=== PATIENT | male | born 1945 | race Caucasian/White ===

== ENCOUNTER → 2019-01-13 | Outpatient (CLI) | payer OTHER ==
[~2019-01-13] MED LIST: FLEC50TA25 PO; HYDR-3245 PO; METO25TA35 PO; RIVA20TA PO
== END | disposition home or self-care (01) ==
LOC: STAR 13:31
PROVIDERS: ATTEND Neurological Surgery
DX: Z01.811 Encounter for preprocedural respiratory examination (principal); Z01.812 Encounter for preprocedural laboratory examination; M48.061 Spinal stenosis, lumbar region without neurogenic claudication; I45.10 Unspecified right bundle-branch block; R79.1 Abnormal coagulation profile
CPT/HCPCS: 93005

== ENCOUNTER 2019-01-20 05:47 | Inpatient (IN) | payer OTHER ==
[2019-01-17 14:01] LABS: INTERNATIONAL NORMALIZED RATIO 1.06 (0.93-1.1); PROTHROMBIN TIME 11.1 Seconds (9.6-11.5)
[~2019-01-20] VITALS: Ht 188 cm; Wt 125.7 kg
[2019-01-20] MEDS ORDERED: LACTATED RINGERS 1,000 ML IV SCH (06:17)
[2019-01-20 06:20] VITALS: BP 110/80
[2019-01-20] MEDS ORDERED: OxyconTIN ER 20 MG TAB.ER PO ONE (06:30)
[2019-01-20] MEDS ORDERED: GABAPENTIN 300 MG CAPSULE PO ONE (06:30)
[2019-01-20] MEDS ORDERED: ACETAMINOPHEN 500 MG TABLET PO ONE (06:30)
[2019-01-20] MEDS ORDERED: FAMOTIDINE 20 MG TABLET PO ONE (06:30)
[2019-01-20] MEDS ORDERED: PROPOFOL 100 ML ONE (06:32)
[2019-01-20] MEDS ORDERED: MIDAZOLAM 1 MG/ML, 2ML ONE (06:32)
[2019-01-20] MEDS ORDERED: FENTANYL PF 250 MCG/5ML ONE (06:32)
[2019-01-20] MEDS ORDERED: BUPIVACAINE/EPI 0.5% 1:200K ONE (06:37)
[2019-01-20] MEDS ORDERED: BUPIVACAINE 0.25% ONE (06:37)
[2019-01-20] MEDS ORDERED: BACITRACIN 50,000 UNIT ONE (06:38)
[2019-01-20] MEDS ORDERED: THROMBIN 20,000 UNIT VIAL TP ONE (06:38)
[2019-01-20] MEDS ORDERED: DEXAMETHASONE 4 MG/ML, 1ML ONE (07:07)
[2019-01-20] MEDS ORDERED: CEFAZOLIN 1,000 MG ONE (07:07)
[2019-01-20] MEDS ORDERED: SUCCINYLCHOLINE 20 MG/ML, 10ML ONE (07:07)
[2019-01-20] MEDS ORDERED: ROCURONIUM 10 MG/ML,10ML ONE (07:07)
[2019-01-20] MEDS ORDERED: BUPIVACAINE LIPOSOME/PF 10ML INFIL ONE (07:58)
[2019-01-20] MEDS ORDERED: BUPIVACAINE/EPI 0.5% 1:200K INFIL ONE (08:00)
[2019-01-20] MEDS ORDERED: ONDANSETRON 2MG/ML, 2ML IV PRN (08:30)
[2019-01-20] MEDS ORDERED: hydrALAzine 20 MG/ML, 1ML IV PRN (08:30)
[2019-01-20] MEDS ORDERED: PROMETHAZINE 25 MG/ML, 1ML IV PRN (08:30)
[2019-01-20] MEDS ORDERED: LABETALOL 5MG/ML, 20ML IV PRN (08:30)
[2019-01-20] MEDS ORDERED: OXYcodone 5 MG/5 ML ORAL.SOL UDC PO PRN (08:30)
[2019-01-20] MEDS ORDERED: HYDROmorphone 2 MG/ML, 1ML IVPush PRN (08:30)
[2019-01-20] MEDS ORDERED: FENTANYL PF 100 MCG/2ML IV PRN (08:30)
[2019-01-20] MEDS ORDERED: MEPERIDINE/PF 25MG/0.5ML IVPush PRN (08:30)
[2019-01-20] MEDS ORDERED: METOPROLOL 1 MG/ML, 5ML IV PRN (08:30)
[2019-01-20] MEDS ORDERED: MICROFIBRILLAR COLLAGEN 1 GM TP ONE (08:53)
[2019-01-20] MEDS ORDERED: PROMETHAZINE 25 MG/ML, 1ML IM PRN (11:30)
[2019-01-20] MEDS ORDERED: CYCLOBENZAPRINE 10 MG TABLET PO PRN (11:30)
[2019-01-20] MEDS ORDERED: HYDROcodone/APAP 5/325 TABLET PO PRN (11:30)
[2019-01-20] MEDS ORDERED: MAGNESIUM HYDROXIDE 8%, 30ML UDC PO PRN (11:30)
[2019-01-20] MEDS ORDERED: SENNA/DOCUSATE TABLET PO PRN (11:30)
[2019-01-20] MEDS ORDERED: LABETALOL 5MG/ML, 20ML IVPush PRN (11:30)
[2019-01-20] MEDS ORDERED: PHARMACY MAY ADJ FOR RENAL FX MC PRN (11:30)
[2019-01-20] MEDS ORDERED: METHOCARBAMOL 750 MG TABLET PO PRN (11:30)
[2019-01-20] MEDS ORDERED: BISACODYL 10 MG SUPP PR PRN (11:30)
[2019-01-20] MEDS ORDERED: DIPHENHYDRAMINE 50 MG/ML, 1ML IVPush PRN (11:30)
[2019-01-20] MEDS ORDERED: HYDROcodone/APAP 10/325 MG TABLET PO PRN (11:30)
[2019-01-20] MEDS ORDERED: HYDROmorphone 1 MG/ML, 1ML VIAL ONE (12:19)
[2019-01-20] MEDS ORDERED: FENTANYL PF 100 MCG/2ML ONE (12:20)
[2019-01-20] MEDS ORDERED: PROMETHAZINE 25 MG/ML, 1ML ONE (12:31)
[2019-01-20 14:00] VITALS: BP 114/76
[2019-01-20] MEDS: morphine SULFATE 10 MG/ML, 1ML IVPush PRN ×3 (15:42→18:12)
[2019-01-20] MEDS: CEFAZOLIN PMX 1GM/50ML 50 ML IVPB SCH ×2 (15:45→22:33)
[2019-01-20] MEDS: D5%-0.9% NACL+KCL 20MEQ 1,000 ML IV SCH ×2 (15:45→21:33)
[2019-01-20] MEDS ORDERED: SODIUM CHLORIDE 0.9% 1,000 ML IV SCH (17:30)
[2019-01-20 17:53] LABS: BASOPHILS % (AUTO) 0 % (0-1); EOSINOPHILS % (AUTO) 0 % (1-7); LYMPHOCYTES # (AUTO) 0.66 x10^3/uL (1-3.4); LYMPHOCYTES % (AUTO) 6 % (22-44); MD NO; MEAN CORPUSCULAR HEMOGLOBIN 31.1 pg (27.5-34.5); MEAN CORPUSCULAR HGB CONC 34.5 g/dL (33.2-36.2); MEAN CORPUSCULAR VOLUME 90.2 fL (81-97); MEAN PLATELET VOLUME 8.4 fL (7.4-10.4); MONOCYTES # (AUTO) 0.71 x10^3/uL (0.2-0.8); MONOCYTES % (AUTO) 6 % (2-9); NEUTROPHILS # (AUTO) 10.57 x10^3/uL (1.8-6.8); NEUTROPHILS % (AUTO) 89 % (42-75); PLATELET COUNT 138 x10^3/uL (130-400); RED BLOOD COUNT 4.75 x10^6/uL (4.38-5.82); RED CELL DISTRIBUTION WIDTH 13.6 % (9.4-14.8)
[2019-01-20] MEDS ORDERED: DIGOXIN 0.25 MG/ML, 2ML IVPush ONE (18:00)
[2019-01-20] MEDS ORDERED: METOPROLOL TARTRATE 25 MG TABLET PO SCH ×2 (18:00→21:00)
[2019-01-20] MEDS ORDERED: METOPROLOL 1 MG/ML, 5ML ONE (18:19)
[2019-01-20] MEDS ORDERED: FILTER 0.22 MICRON IV ONE (18:30)
[2019-01-20] MEDS ORDERED: AMIODARONE 300 MG in DEXTROSE 5% 100 ML IV ONE (18:30)
[2019-01-20] MEDS ORDERED: METOPROLOL 1 MG/ML, 5ML IVPush ONE (18:30)
[2019-01-20 18:39] VITALS: BP 102/72
[2019-01-20 18:48] VITALS: BP 104/71
[2019-01-20 18:51] LABS: ALANINE AMINOTRANSFERASE 45 U/L (12-78); ALBUMIN 3.3 g/dL (3.4-5.0); ANION GAP 10 mmol/L (5-15); CALCIUM 8.6 mg/dL (8.5-10.1); CHLORIDE 108 mmol/L (98-107); CREATININE 1.18 mg/dL (0.7-1.3)
[2019-01-20 18:56] VITALS: BP 92/64
[2019-01-20 18:56] LABS: ALKALINE PHOSPHATASE 72 U/L (45-117); TOTAL PROTEIN 6.2 g/dL (6.4-8.2); TROPONIN I < 0.015 ng/mL (0.000-0.045)
[2019-01-20 20:55] VITALS: BP 97/69
[2019-01-20] MEDS: SODIUM CHLORIDE FLUSH 10ML SYR IVF SCH (21:00)
[2019-01-21] MEDS ORDERED: FLECAINIDE 100MG TABLET PO SCH
[2019-01-21 00:10] LABS: TROPONIN I < 0.015 ng/mL (0.000-0.045)
[2019-01-21] MEDS ORDERED: DIGOXIN 0.25 MG/ML, 2ML IVPush ONE ×2 (03:30→09:30)
[2019-01-21 03:36] VITALS: BP 96/64
[2019-01-21] MEDS: METOPROLOL TARTRATE 25 MG TABLET PO SCH ×2 (04:34→18:11)
[2019-01-21] MEDS: ENOXAPARIN 40 MG/0.4 ML SQ SCH (04:45)
[2019-01-21] MEDS: D5%-0.9% NACL+KCL 20MEQ 1,000 ML IV SCH (04:52)
[2019-01-21 05:41] LABS: TROPONIN I 0.026 ng/mL (0.000-0.045)
[2019-01-21 07:08] VITALS: BP 95/66
[2019-01-21] MEDS ORDERED: AMIODARONE 50 MG/ML, 3ML IVPush ONE ×2 (09:30→13:00)
[2019-01-21] MEDS: SODIUM CHLORIDE FLUSH 10ML SYR IVF SCH ×2 (09:50→20:16)
[2019-01-21] MEDS ORDERED: FILTER 0.22 MICRON IV ONE (10:00)
[2019-01-21] MEDS ORDERED: AMIODARONE 300 MG in DEXTROSE 5% 100 ML IV ONE (10:00)
[2019-01-21] MEDS: FAMOTIDINE 20 MG/2 ML IVPush SCH ×2 (10:23→20:16)
[2019-01-21] MEDS: FILTER 0.22 MICRON FOR AMIODARONE IV PRN (10:51)
[2019-01-21] MEDS: AMIODARONE 900 MG in DEXTROSE 5% 482 ML IV PRN (10:52)
[2019-01-21] MEDS: SODIUM CHLORIDE 0.9% 1,000 ML IV SCH ×2 (12:00→21:59)
[2019-01-21] MEDS ORDERED: AMIODARONE 150 MG in DEXTROSE 5% 100 ML IV ONE (13:00)
[2019-01-21 13:11] LABS: ANION GAP 8 mmol/L (5-15); CALCIUM 7.7 mg/dL (8.5-10.1); CHLORIDE 111 mmol/L (98-107); CREATININE 1.06 mg/dL (0.7-1.3)
[2019-01-21 15:22] VITALS: BP 89/90
[2019-01-21] MEDS ORDERED: OMNIPAQUE 350 MG/ML, 100ML BOTTLE ONE (16:05)
[2019-01-21] MEDS: OXYcodone/APAP 5/325MG TABLET PO PRN (16:12)
[2019-01-21 19:55] VITALS: BP 93/61
[2019-01-22 00:17] VITALS: BP 92/60
[2019-01-22] MEDS: OXYcodone/APAP 5/325MG TABLET PO PRN ×5 (03:28→22:08)
[2019-01-22 04:20] VITALS: BP 102/67
[2019-01-22 04:34] LABS: CHLORIDE 109 mmol/L (98-107)
[2019-01-22 04:51] LABS: ALANINE AMINOTRANSFERASE 22 U/L (12-78); ALBUMIN 2.6 g/dL (3.4-5.0); ALKALINE PHOSPHATASE 51 U/L (45-117); ANION GAP 6 mmol/L (5-15); BILIRUBIN,TOTAL 4.1 mg/dL (0.2-1.0); CALCIUM 7.6 mg/dL (8.5-10.1); CREATININE 1.02 mg/dL (0.7-1.3); TOTAL PROTEIN 5.3 g/dL (6.4-8.2)
[2019-01-22 05:28] LABS: MEAN CORPUSCULAR HEMOGLOBIN 30.6 pg (27.5-34.5); MEAN CORPUSCULAR HGB CONC 34.1 g/dL (33.2-36.2); MEAN CORPUSCULAR VOLUME 89.8 fL (81-97); MEAN PLATELET VOLUME 8.3 fL (7.4-10.4); PLATELET COUNT 104 x10^3/uL (130-400); RED BLOOD COUNT 3.62 x10^6/uL (4.38-5.82); RED CELL DISTRIBUTION WIDTH 13.2 % (9.4-14.8)
[2019-01-22 06:12] LABS: BASOPHILS # (AUTO) 0.03 x10^3/uL (0-0.1); BASOPHILS % (AUTO) 0 % (0-1); EOSINOPHILS # (AUTO) 0.01 x10^3/uL (0-0.4); EOSINOPHILS % (AUTO) 0 % (1-7); LYMPHOCYTES # (AUTO) 0.71 x10^3/uL (1-3.4); LYMPHOCYTES % (AUTO) 10 % (22-44); MD SCAN; MONOCYTES % (AUTO) 9 % (2-9); NEUTROPHILS # (AUTO) 5.62 x10^3/uL (1.8-6.8); NEUTROPHILS % (AUTO) 81 % (42-75)
[2019-01-22] MEDS: SODIUM CHLORIDE 0.9% 1,000 ML IV SCH ×2 (06:37→16:54)
[2019-01-22] MEDS: ENOXAPARIN 40 MG/0.4 ML SQ SCH (06:37)
[2019-01-22] MEDS: METOPROLOL TARTRATE 25 MG TABLET PO SCH ×2 (06:37→18:24)
[2019-01-22 06:38] VITALS: BP 115/73
[2019-01-22 08:20] VITALS: BP 99/62
[2019-01-22] MEDS ORDERED: FLECAINIDE 50MG TABLET PO SCH (09:00)
[2019-01-22] MEDS: SODIUM CHLORIDE FLUSH 10ML SYR IVF SCH ×2 (09:03→21:00)
[2019-01-22] MEDS: FAMOTIDINE 20 MG/2 ML IVPush SCH ×2 (09:03→21:50)
[2019-01-22 12:12] VITALS: BP 104/64
[2019-01-22] MEDS: FILTER 0.22 MICRON FOR AMIODARONE IV PRN (12:23)
[2019-01-22] MEDS: ONDANSETRON 2MG/ML, 2ML IVPush PRN (12:23)
[2019-01-22] MEDS: AMIODARONE 900 MG in DEXTROSE 5% 482 ML IV PRN (12:24)
[2019-01-22 20:00] VITALS: BP 88/57
[2019-01-23] VITALS (8 sets, daily range): BP systolic 96–113; BP diastolic 60–68
[2019-01-23] MEDS: SODIUM CHLORIDE 0.9% 1,000 ML IV SCH ×2 (05:11→20:47)
[2019-01-23] MEDS: OXYcodone/APAP 5/325MG TABLET PO PRN ×4 (05:18→22:28)
[2019-01-23 05:33] LABS: CHLORIDE 109 mmol/L (98-107)
[2019-01-23] MEDS: METOPROLOL TARTRATE 25 MG TABLET PO SCH (05:43)
[2019-01-23 05:45] LABS: ALANINE AMINOTRANSFERASE 22 U/L (12-78); ALBUMIN 2.3 g/dL (3.4-5.0); ALKALINE PHOSPHATASE 49 U/L (45-117); ANION GAP 5 mmol/L (5-15); BILIRUBIN,TOTAL 2.9 mg/dL (0.2-1.0); CREATININE 0.85 mg/dL (0.7-1.3); TOTAL PROTEIN 5.3 g/dL (6.4-8.2)
[2019-01-23] MEDS: FAMOTIDINE 20 MG/2 ML IVPush SCH ×2 (08:51→20:46)
[2019-01-23] MEDS: ONDANSETRON 2MG/ML, 2ML IVPush PRN ×2 (08:51→17:56)
[2019-01-23] MEDS: SODIUM CHLORIDE FLUSH 10ML SYR IVF SCH ×2 (08:52→20:47)
[2019-01-23] MEDS ORDERED: SODIUM CHLORIDE 0.9%, 500ML IVBOLUS ONE (09:00)
[2019-01-23] MEDS: GUAIFENESIN 200 MG TABLET PO SCH ×3 (11:55→20:46)
[2019-01-23] MEDS: morphine SULFATE 10 MG/ML, 1ML IVPush PRN (14:23)
[2019-01-23] MEDS: AMIODARONE 900 MG in DEXTROSE 5% 482 ML IV PRN (19:10)
[2019-01-23] MEDS: FILTER 0.22 MICRON FOR AMIODARONE IV PRN (19:11)
[2019-01-24 00:12] VITALS: BP 110/69
[2019-01-24] MEDS: SODIUM CHLORIDE 0.9% 1,000 ML IV SCH ×2 (06:28→16:24)
[2019-01-24] MEDS: GUAIFENESIN 200 MG TABLET PO SCH ×4 (06:28→20:53)
[2019-01-24] MEDS: FAMOTIDINE 20 MG/2 ML IVPush SCH ×2 (08:42→20:54)
[2019-01-24] MEDS: SODIUM CHLORIDE FLUSH 10ML SYR IVF SCH ×2 (08:51→20:52)
[2019-01-24 08:55] VITALS: BP 115/72
[2019-01-24 08:55] LABS: BASOPHILS % (AUTO) 0 % (0-1); EOSINOPHILS # (AUTO) 0.07 x10^3/uL (0-0.4); EOSINOPHILS % (AUTO) 1 % (1-7); LYMPHOCYTES # (AUTO) 0.48 x10^3/uL (1-3.4); LYMPHOCYTES % (AUTO) 9 % (22-44); MD NO; MEAN CORPUSCULAR HEMOGLOBIN 30.3 pg (27.5-34.5); MEAN CORPUSCULAR HGB CONC 33.6 g/dL (33.2-36.2); MEAN CORPUSCULAR VOLUME 90.2 fL (81-97); MEAN PLATELET VOLUME 8.4 fL (7.4-10.4); MONOCYTES # (AUTO) 0.42 x10^3/uL (0.2-0.8); MONOCYTES % (AUTO) 8 % (2-9); NEUTROPHILS # (AUTO) 4.65 x10^3/uL (1.8-6.8); NEUTROPHILS % (AUTO) 83 % (42-75); PLATELET COUNT 120 x10^3/uL (130-400); RED BLOOD COUNT 3.38 x10^6/uL (4.38-5.82); RED CELL DISTRIBUTION WIDTH 13.2 % (9.4-14.8)
[2019-01-24 09:02] LABS: INTERNATIONAL NORMALIZED RATIO 1.12 (0.93-1.1); PROTHROMBIN TIME 11.7 Seconds (9.6-11.5)
[2019-01-24] MEDS: AMIODARONE 200 MG TABLET PO SCH ×2 (09:14→20:54)
[2019-01-24] MEDS ORDERED: HEPARIN 5,000 UNITS/ML, 1ML IV ONE (12:00)
[2019-01-24] MEDS: HEPARIN 25,000 UNITS/500ML PMX 500 ML IV PRN (12:55)
[2019-01-24 14:23] VITALS: BP 116/71
[2019-01-24] MEDS ORDERED: AMIODARONE 150 MG in DEXTROSE 5% 100 ML IV ONE (15:00)
[2019-01-24] MEDS ORDERED: FILTER 0.22 MICRON FOR AMIODARONE IV PRN (15:30)
[2019-01-24 15:40] VITALS: BP 132/74
[2019-01-24 17:05] VITALS: BP 104/63
[2019-01-24] MEDS: HEPARIN 5,000 UNITS/ML, 1ML IV PRN (20:00)
[2019-01-24 20:57] VITALS: BP 107/71
[2019-01-25 02:12] VITALS: BP 99/64
[2019-01-25 02:23] LABS: ALANINE AMINOTRANSFERASE 19 U/L (12-78); ALBUMIN 1.8 g/dL (3.4-5.0); ANION GAP 6 mmol/L (5-15); CALCIUM 7.5 mg/dL (8.5-10.1); CHLORIDE 108 mmol/L (98-107); CREATININE 0.78 mg/dL (0.7-1.3)
[2019-01-25 02:25] LABS: ALKALINE PHOSPHATASE 48 U/L (45-117); BASOPHILS # (AUTO) 0.01 x10^3/uL (0-0.1); BASOPHILS % (AUTO) 0 % (0-1); BILIRUBIN,TOTAL 1.9 mg/dL (0.2-1.0); EOSINOPHILS # (AUTO) 0.08 x10^3/uL (0-0.4); EOSINOPHILS % (AUTO) 1 % (1-7); LYMPHOCYTES # (AUTO) 0.62 x10^3/uL (1-3.4); LYMPHOCYTES % (AUTO) 11 % (22-44); MD NO; MEAN CORPUSCULAR HEMOGLOBIN 31.1 pg (27.5-34.5); MEAN CORPUSCULAR HGB CONC 34.3 g/dL (33.2-36.2); MEAN CORPUSCULAR VOLUME 90.8 fL (81-97); MEAN PLATELET VOLUME 7.9 fL (7.4-10.4); MONOCYTES # (AUTO) 0.47 x10^3/uL (0.2-0.8); MONOCYTES % (AUTO) 8 % (2-9); NEUTROPHILS # (AUTO) 4.43 x10^3/uL (1.8-6.8); NEUTROPHILS % (AUTO) 79 % (42-75); PLATELET COUNT 144 x10^3/uL (130-400); RED BLOOD COUNT 3.06 x10^6/uL (4.38-5.82); RED CELL DISTRIBUTION WIDTH 12.8 % (9.4-14.8); TOTAL PROTEIN 4.7 g/dL (6.4-8.2)
[2019-01-25] MEDS: SODIUM CHLORIDE 0.9% 1,000 ML IV SCH ×3 (02:47→22:47)
[2019-01-25] MEDS: HEPARIN 5,000 UNITS/ML, 1ML IV PRN ×2 (02:48→17:12)
[2019-01-25] MEDS: HEPARIN 25,000 UNITS/500ML PMX 500 ML IV PRN ×2 (06:36→21:23)
[2019-01-25] MEDS: GUAIFENESIN 200 MG TABLET PO SCH ×4 (06:37→21:21)
[2019-01-25 07:10] VITALS: BP 100/63
[2019-01-25] MEDS: SODIUM CHLORIDE FLUSH 10ML SYR IVF SCH ×2 (08:34→21:23)
[2019-01-25] MEDS: FAMOTIDINE 20 MG/2 ML IVPush SCH (08:35)
[2019-01-25] MEDS: AMIODARONE 200 MG TABLET PO SCH (08:35)
[2019-01-25] MEDS ORDERED: RIVAROXABAN 15 MG TABLET PO SCH (10:30)
[2019-01-25] MEDS: POTASSIUM CHLORIDE 20 MEQ TAB.ER.PRT PO SCH ×2 (12:20→15:50)
[2019-01-25 12:50] VITALS: BP 120/75
[2019-01-25] MEDS: ONDANSETRON 2MG/ML, 2ML IVPush PRN (17:11)
[2019-01-25 20:52] VITALS: BP 110/70
[2019-01-26 00:54] VITALS: BP 105/68
[2019-01-26] MEDS: GUAIFENESIN 200 MG TABLET PO SCH ×4 (05:18→21:32)
[2019-01-26] MEDS: PANTOPRAZOLE 20MG TABLET PO SCH (05:18)
[2019-01-26 05:52] LABS: BASOPHILS # (AUTO) 0.01 x10^3/uL (0-0.1); BASOPHILS % (AUTO) 0 % (0-1); EOSINOPHILS % (AUTO) 2 % (1-7); LYMPHOCYTES # (AUTO) 0.51 x10^3/uL (1-3.4); LYMPHOCYTES % (AUTO) 10 % (22-44); MD NO; MEAN CORPUSCULAR HEMOGLOBIN 30.2 pg (27.5-34.5); MEAN CORPUSCULAR HGB CONC 33.7 g/dL (33.2-36.2); MEAN CORPUSCULAR VOLUME 89.6 fL (81-97); MEAN PLATELET VOLUME 8.9 fL (7.4-10.4); MONOCYTES # (AUTO) 0.32 x10^3/uL (0.2-0.8); MONOCYTES % (AUTO) 6 % (2-9); NEUTROPHILS # (AUTO) 4.03 x10^3/uL (1.8-6.8); NEUTROPHILS % (AUTO) 81 % (42-75); PLATELET COUNT 150 x10^3/uL (130-400); RED BLOOD COUNT 3.16 x10^6/uL (4.38-5.82); RED CELL DISTRIBUTION WIDTH 12.7 % (9.4-14.8)
[2019-01-26 06:04] LABS: CHLORIDE 108 mmol/L (98-107)
[2019-01-26 06:15] LABS: ALANINE AMINOTRANSFERASE 19 U/L (12-78); ALKALINE PHOSPHATASE 47 U/L (45-117); ANION GAP 6 mmol/L (5-15); BILIRUBIN,TOTAL 2.1 mg/dL (0.2-1.0); CALCIUM 7.9 mg/dL (8.5-10.1); CREATININE 0.78 mg/dL (0.7-1.3); TOTAL PROTEIN 5.2 g/dL (6.4-8.2)
[2019-01-26 07:15] VITALS: BP 131/76
[2019-01-26] MEDS: SODIUM CHLORIDE FLUSH 10ML SYR IVF SCH ×2 (09:05→21:32)
[2019-01-26] MEDS: HEPARIN 25,000 UNITS/500ML PMX 500 ML IV PRN (10:13)
[2019-01-26] MEDS ORDERED: SODIUM CHLORIDE 0.9% 1,000 ML IV SCH (12:30)
[2019-01-26 15:49] VITALS: BP 116/76
[2019-01-26] MEDS: POTASSIUM CHLORIDE 20 MEQ TAB.ER.PRT PO SCH ×2 (15:58→21:32)
[2019-01-26] MEDS: RIVAROXABAN 15 MG TABLET PO SCH (17:34)
[2019-01-26 20:13] VITALS: BP 102/67
[2019-01-27 01:00] VITALS: BP 98/55
[2019-01-27 05:38] LABS: ALBUMIN 2.1 g/dL (3.4-5.0); ANION GAP 8 mmol/L (5-15); CALCIUM 7.6 mg/dL (8.5-10.1); CHLORIDE 107 mmol/L (98-107)
[2019-01-27 05:43] LABS: ALANINE AMINOTRANSFERASE 22 U/L (12-78); ALKALINE PHOSPHATASE 54 U/L (45-117); BILIRUBIN,TOTAL 2.4 mg/dL (0.2-1.0); TOTAL PROTEIN 5.1 g/dL (6.4-8.2)
[2019-01-27] MEDS: GUAIFENESIN 200 MG TABLET PO SCH ×2 (06:24→11:00)
[2019-01-27] MEDS: PANTOPRAZOLE 20MG TABLET PO SCH (06:24)
[2019-01-27] MEDS: POTASSIUM CHLORIDE 20 MEQ TAB.ER.PRT PO SCH (06:24)
[2019-01-27 07:44] VITALS: BP 121/80
[2019-01-27] MEDS: SODIUM CHLORIDE FLUSH 10ML SYR IVF SCH (09:00)
[2019-01-27] MEDS ORDERED: CYCL5TAB PO (09:36)
[2019-01-27] MEDS ORDERED: OXYC5CAP2 PO (09:36)
[2019-01-27] MEDS ORDERED: CEPH-368 PO (09:37)
[2019-01-27] MEDS ORDERED: RIVA15TA PO (09:38)
[2019-01-27] MEDS ORDERED: POTA20TA14 PO (09:40)
[2019-01-27] MEDS ORDERED: SENN-177 PO (09:42)
[2019-01-27] MEDS: RIVAROXABAN 15 MG TABLET PO SCH (09:52)
== END 2019-01-27 12:30 | disposition home health service (06) | DRG 453 ==
LOC: ORIP 05:47 → 4NOR 12:19 → 5SO 18:28 → EDSTATUS 01-23 15:30 → DCLOUNGE 01-27 12:18
PROVIDERS: ADMIT Neurological Surgery; ATTEND Neurological Surgery
PROC: 0WPL0YZ Removal of Other Device from Lower Back, Open Approach (ICD-10-PCS; 2019-01-20)
PROC: 0SG10AJ Fusion of 2 or more Lumbar Vertebral Joints with Interbody Fusion Device, Posterior Approach, Anterior Column, Open Approach (ICD-10-PCS; 2019-01-20)
PROC: 4A11X4G Monitoring of Peripheral Nervous Electrical Activity, Intraoperative, External Approach (ICD-10-PCS; 2019-01-20)
PROC: 0SG1071 Fusion of 2 or more Lumbar Vertebral Joints with Autologous Tissue Substitute, Posterior Approach, Posterior Column, Open Approach (ICD-10-PCS; 2019-01-20)
PROC: 0SG10A0 Fusion of 2 or more Lumbar Vertebral Joints with Interbody Fusion Device, Anterior Approach, Anterior Column, Open Approach (ICD-10-PCS; principal; 2019-01-20 07:00)
DX: M48.061 Spinal stenosis, lumbar region without neurogenic claudication (principal); E43 Unspecified severe protein-calorie malnutrition; I48.92 Unspecified atrial flutter; J98.11 Atelectasis; D68.69 Other thrombophilia; M48.56XA Collapsed vertebra, not elsewhere classified, lumbar region, initial encounter for fracture; M51.16 Intervertebral disc disorders with radiculopathy, lumbar region; I45.10 Unspecified right bundle-branch block; Z68.35 Body mass index [BMI] 35.0-35.9, adult; I10 Essential (primary) hypertension; I48.0 Paroxysmal atrial fibrillation; G89.29 Other chronic pain; K76.89 Other specified diseases of liver; M40.50 Lordosis, unspecified, site unspecified; Z79.01 Long term (current) use of anticoagulants; Z86.718 Personal history of other venous thrombosis and embolism; Z87.891 Personal history of nicotine dependence; Z90.49 Acquired absence of other specified parts of digestive tract; E66.01 Morbid (severe) obesity due to excess calories
CPT/HCPCS: 36415; 72100; J3490; 71045; 71275; 72131; 80048; 80053; 80162; 82962; 83735; 84443; 84484; 85025; 85520; 85610; 85730; 93005; 93306; C1713; C1776; G0378; J0690; J1100; J1644; J1650; J2250; J2405; J2550; J2704; J3010; Q9967; C1760; C1763; J0282; J0330; J1160; J2270; J3480; J7030; J7040; J7060; J7120